=== PATIENT | female | born 1975 | race Caucasian/White ===

== ENCOUNTER → 2016-06-12 13:05 | Outpatient (CLI) | payer BC ==
[~2016-06-12 13:05] MED LIST: CELEBREX200 MG PO; CLIMARA 0.0.1 MG/PAT TRANSDERM; HYDROCHLOROTHIA25 MG PO; HYDROCODON-ACE1 EAC7 PO; LEVSIN/ANASP0.125 MG PO; MULTI-DAY VITAM1 TAB PO; NORCO 7.5/325 T1 TA1 PO; OMEPRAZOLE40 MG PO; PERCOCET 5-3251 TAB PO; VITAMIN D5000 UNIT PO; ZOFRAN ODT4 MG/UDTAB PO
[2016-06-12 13:40] LABS: BASOPHILS 0 % (0.0-2.0); EOSINOPHILS 0 % (0-7); HEMATOCRIT 41.6 % (36.0-48.0); HEMOGLOBIN 14.2 g/dL (12-16); IMMATURE GRANULOCYTES 0.4 % (0-5); LYMPHOCYTES 9.5 % (15-50); MCH 31.1 pg (26.0-34.0); MCHC 34.1 g/dL (31.0-37.0); MCV 91.2 fL (80.0-100.0); MEAN PLATELET VOLUME 8.8 fL (7.4-10.4); MONOCYTES 0.7 % (2-11); NEUTROPHILS 89.4 % (40-80); RBC 4.56 10x6/uL (4.00-5.40); RDW 12.4 % (11.5-14.5)
[2016-06-12 13:45] LABS: PLATELET COUNT 396 10x3/uL (130-400)
[2016-06-12 13:57] LABS: ALBUMIN 3.8 g/dL (3.4-5.0); ANION GAP 13.8 mmol/L (8-16); BILIRUBIN - DIRECT 0.15 mg/dL (0.00-0.30); BILIRUBIN - INDIRECT 0.55 mg/dL (0.00-1.00); BILIRUBIN - TOTAL 0.7 mg/dL (0.2-1.3); CALCIUM 9.7 mg/dL (8.5-10.1); CARBON DIOXIDE 25.6 mmol/L (21.0-32.0); CREATININE - SERUM 1.1 mg/dL (0.6-1.3); POTASSIUM - SERUM 4.4 mmol/L (3.5-5.1); PROTEIN - SERUM 8.5 g/dL (6.4-8.2)
== END | disposition home or self-care (01) ==
LOC: D.CT 13:05
PROVIDERS: Surgery
DX: R10.9 Unspecified abdominal pain (principal)

== ENCOUNTER 2016-09-08 20:14 | Emergency (ER) | payer BC | END 2016-09-08 22:12 | disposition home or self-care (01) | LOC: D.ER 20:14 | DX: L03.115 Cellulitis of right lower limb (principal); M79.671 Pain in right foot; K58.9 Irritable bowel syndrome, unspecified ==

== ENCOUNTER 2016-09-23 09:21 | Emergency (ER) | payer BC ==
[2016-09-23 10:05] LABS: BASOPHILS 0.1 % (0-2); EOSINOPHILS 0.4 % (0-7); HEMOGLOBIN 14.5 g/dL (12-16); IMMATURE GRANULOCYTES 0.3 % (0-5); LYMPHOCYTES 6.7 % (15-50); MCH 30.5 pg (26.0-34.0); MCV 92.4 fL (80.0-100.0); MEAN PLATELET VOLUME 8.6 fL (7.4-10.4); MONOCYTES 5.1 % (2-11); NEUTROPHILS 87.4 % (40-80); RBC 4.76 10x6/uL (4.00-5.40); RDW 13.6 % (11.5-14.5); WBC 19.5 10x3/uL (4.8-10.8)
[2016-09-23 10:06] LABS: PLATELET COUNT 271 10x3/uL (130-400)
[2016-09-23 10:18] LABS: ALBUMIN 3.9 g/dL (3.4-5.0); ANION GAP 12.8 mmol/L (8-16); BILIRUBIN - TOTAL 0.7 mg/dL (0.2-1.3); CALCIUM 9.5 mg/dL (8.5-10.1); CARBON DIOXIDE 27.9 mmol/L (21.0-32.0); POTASSIUM - SERUM 4.7 mmol/L (3.5-5.1)
[2016-09-23 10:52] LABS: APPEARANCE HAZY (CLEAR); COLOR STRAW (YELLOW); GLUCOSE NEGATIVE (NEGATIVE); KETONE NEGATIVE (NEGATIVE); LEUKOCYTE ESTERASE NEGATIVE (NEGATIVE); NITRITE NEGATIVE (NEGATIVE); PROTEIN NEGATIVE (NEGATIVE); SPECIFIC GRAVITY 1.005 (1.005-1.020)
[2016-09-23 10:53] LABS: BACTERIA FEW /hpf (NONE SEEN); BILIRUBIN NEGATIVE (NEGATIVE); EPITHELIAL CELLS 0-5 /hpf (0-5); UROBILINOGEN NORMAL (NORMAL); WHITE CELLS - URINE NSEEN /hpf (0-5)
== END 2016-09-23 14:45 | disposition home or self-care (01) ==
LOC: D.ER 09:21
PROVIDERS: Emergency Medicine; Physician Assistant Medical
DX: J18.9 Pneumonia, unspecified organism (principal); N93.8 Other specified abnormal uterine and vaginal bleeding; K58.9 Irritable bowel syndrome, unspecified

== ENCOUNTER 2016-09-30 16:47 | Inpatient (IN) | payer BC ==
[~2016-09-30] VITALS: Ht 177.8 cm; Wt 139.5 kg
--- NOTE | ~2016-09-30 | CN ---
PATIENT NAME:DENISA GROVE MEDICAL RECORD: [id number] : 77 LOCATION:[id number] ADMIT DATE: 09/30/16 ACCOUNT: [id number] CONSULTING PHYSICIAN: ADRIANNE PARKER MD REFERRING PHYSICIAN: TEGAN CULLEN MD DATE OF CONSULTATION: 10/01/2016 Rheumatology Consultation HISTORY OF PRESENT ILLNESS: Denisa Grove is a 41-year-old woman I have been asked to evaluate by Dr. Tegan Cullen regarding recurrent purpuric rash. The patient reports in February 2016 while doing a walking program, she developed red/purple petechial areas around the feet and lower legs, which have gradually worsened. She was evaluated by Dr. Casas upkeep worker in March 2016 and reports a skin biopsy in his office was obtained of this left lower leg and sent to [facility] and was interpreted as HS purpura. The patient reports she did not do any serologies. The patient reports she has had serologies through MACHINE DEBURRER's office, thinks her MARTÍN was negative. She is unaware of any other tests. In March, she was initially treated with prednisone 40 mg daily, was gradually tapered over 3 weeks. She had rapid response to the rash, but then it recurred when the prednisone was tapered. She was retreated again a second time. She was then off of all steroids for about mid April through early June when she underwent hysterectomy and removal of lap band. During that time, she had a prominent purpura of the lower legs and abdomen. She was then retreated with prednisone in June for 3 weeks and had temporary improvement of the rash. Because of recurrence of the rash, Plaquenil 200 mg once daily was added on 08/09/2016. During this time, she continued on some doses of prednisone. The patient reports that in July, she developed pain, swelling, erythema of the lower leg was diagnosed with cellulitis, treated in the Emergency Room with antibiotic. This was on or about September 08 with Bactrim that resolved. On September 23, she was admitted to the Emergency Room with feverishness dry cough. Chest x-ray showed old small left pleural effusion and thought she had pneumonia, treated with Levaquin 500 mg a day from September 23 to September 30. On arrival, the patient discontinued the Plaquenil, thinking this may have caused her infections. Yesterday, the patient was admitted from the office because of low-grade temperature of 99 degrees, fatigue, arthralgias, myalgias and recurrent purpura. On admission, white count was 22,000, which is decreased down to 12,000, hemoglobin 14.2, platelets normal, sed rate 20. C-reactive protein 3.6. Creatinine is 1 and BUN 12. Liver function is normal. CPK 313 (normal is less than 215). Most recent urinalysis on September 23 showed 2+ hemoglobin and 5-10 rbc's. When the patient was first diagnosed with HS purpura, she reports that since CONSULT REPORT [id number] DENISA GROVE then, she has had intermittent microhematuria. She reports attempts were made to get a nephrology consultation, but nothing can be established. Throughout all these episodes, the patient has had some mild arthralgias, myalgias and some puffiness of her hands and feet that increased during the day. She has not had a sign of pulmonary disease, definite photosensitive rash, alopecia, history of pleural effusion, pericarditis, hepatitis, TIA, or stroke. The patient reports her maternal uncle was diagnosed possibly 20 years ago with HS purpura and since then has developed lymphoma. The patient reports a maternal aunt being evaluated by another credit collection specialist for possible lupus like or Sjogren's-like symptoms. HOME MEDICATIONS: Levaquin 500 mg daily, completed on September 30, Plaquenil 200 mg daily, 08/09/2016-09/24/2016, previous courses of tapering dose prednisone, estradiol patch every 7 days (started in May 2016 after hysterectomy). CURRENT MEDICATIONS: Estradiol patch and acetaminophen 650 mg every 6 hours p.r.n. PAST MEDICAL HISTORY: SHE IS ALLERGIC TO RADIOCONTRAST DYE AND SHELLFISH. She had cholecystectomy, tonsillectomy, myringotomy tubes, hysterectomy and oophorectomy for benign reasons, lumbar disc surgery, right knee arthroscopy, gastric banding in 2013 and banding was removed in May 2016. She had a right carpal tunnel release in 2016. SOCIAL HISTORY: She does not smoke or drink alcohol. She works locally at the [employer]. FAMILY HISTORY: Positive family history of diabetes. Her mother in her 40s for adult respiratory distress syndrome, cause undetermined. She has had some sort of depleting or wasting disease prior to that. As outlined above, her maternal uncle was diagnosed with HS purpura approximately 20 years ago and subsequently developed lymphoma. Maternal aunt is being evaluated for Sjogren's and lupus-like symptoms. REVIEW OF SYSTEMS: See present illness. She denies chills, sweats, or rigor, dysphagia, frequent reflux, cough, wheeze, orthopnea, PND, epigastric discomfort, melena, hematochezia, DVT, TIA, stroke, or seizures. PHYSICAL EXAMINATION: VITAL SIGNS: Blood pressure [id number], pulse 85 and regular, respirations 20, temperature 97.7 and O2 sat 97% on room air. GENERAL: This is a well-developed, obese woman, in no acute distress. HEENT: Head: Normal female hair pattern without alopecia. Eyes: Conjunctivae are clear. Extraocular movements are normal. Throat is clear. Mouth is moist without lesions. Parotid and submandibular glands are not enlarged. NECK: Supple, trachea is midline. There is no adenopathy in the neck or supraclavicular areas or axilla. LUNGS: Clear. CARDIOVASCULAR: S1 and S2 are normal. Carotid arteries are 2+ without delay or bruit. Pedal pulses 2+. No dependent edema. CONSULT REPORT [id number] DENISA GROVE ABDOMEN: Soft, obese, nontender, without masses. MUSCULOSKELETAL: There is no inflammation in wrist, fingers, elbows and knees. NEUROLOGIC: Alert and oriented. Moves all extremities well. Muscle strength is 5/5 in the upper and lower extremities proximally and distally. SKIN: She has a flat purpura with dusky red macules around the feet, ankles, some on the shins, thighs. There is no involvement at this time of the abdomen and arms. There is no malar rash, discoid lupus, sclerodactyly, telangiectasia, or nodules. PSYCHIATRIC: Normal affect, alert and oriented. IMPRESSION: 1. Recurrent purpuric rash with prominent involvement of the lower extremities, previous diagnosed as HS purpura by skin biopsy in March 2016, still unresponsive. 2. Microhematuria possibly secondary to HS purpura. 3. Episodes of cellulitis of the foot and ankle early in August 2016, treated successfully with Bactrim. 4. Left pleural effusion/cough diagnosed as pneumonitis on 09/23/2016, treated successfully with Levaquin. 5. Current illness with myalgias, arthralgias, fatigue, low-grade temperature, leukocytosis and recurrent purpuric rash. RECOMMENDATIONS: 1. Advise obtaining all previous serological tests if not performed or reconsider rechecking the following tests, MARTÍN, ANCA, rheumatoid factor, serum protein electrophoresis and cryoglobulins. 2. Consider treatment with low-dose prednisone such as 10 mg daily, observe response to myalgias or arthralgias, low-grade temperature and rash. 3. Could conceivably restart low-dose, Plaquenil, but might consider increasing dose based on weight to maximum of 5 mg/kg. 4. Continue supportive care. 5. Try to obtain a copy of previous skin biopsy for review. TRANSINT:[id number] Voice Confirmation ID: [id number] DOCUMENT ID: [id number] ADRIANNE PARKER MD CC: [id number] DICTATION DATE: 10/01/161847 ASSISTANT PROFESSOR OF DIETETICS: 10/02/16 0408 ADM IN [facility] [address] [id number]
--- NOTE | 2016-09-30 17:10 | NUR ---
RECEIVED TO ROOM 2[address] AT THIS TIME FROM DR CULLEN'S OFFICE. IV TO RIGHT UPPER ARM X4 ATTEMPTS. ASSESSMENT AND HISTORY OBTAINED PER FLOWSHEET. PT IS AMBULATORY AND SELF POSITIONS FOR COMFORT. WILL CONTINUE WITH PLAN OF CARE.
[2016-09-30 17:21] VITALS: BP 138/74
[2016-09-30 17:30] VITALS: BP 138/74; Ht 177.8 cm; Wt 139.5 kg
[2016-09-30 18:05] LABS: HEMOGLOBIN 14.2 g/dL (12-16); MCH 30.7 pg (26.0-34.0); MCHC 33.8 g/dL (31.0-37.0); MCV 90.9 fL (80.0-100.0); MEAN PLATELET VOLUME 8.7 fL (7.4-10.4); PLATELET COUNT 258 10x3/uL (130-400); RBC 4.62 10x6/uL (4.00-5.40); RDW 13.8 % (11.5-14.5)
[2016-09-30 18:42] LABS: EOSINOPHILS 2 % (0-7); LYMPHOCYTES 11 % (15-50); MONOCYTES 3 % (2-11); NEUTROPHILS 84 % (40-80); PLATELET ESTIMATE NORMAL
[2016-09-30 18:46] LABS: ALBUMIN 3.6 g/dL (3.4-5.0); ALKALINE PHOSPHATASE 59 U/L (46-116); ALT (SGPT) 27 U/L (10-68); BILIRUBIN - TOTAL 1.04 mg/dL (0.2-1.3); CALC OSMOLALITY 280 mosm/kg (275-300); CALCIUM 9.2 mg/dL (8.5-10.1); CARBON DIOXIDE 27.7 mmol/L (21.0-32.0); CHLORIDE - SERUM 103 mmol/L (98-107); CREATININE - SERUM 1.1 mg/dL (0.6-1.3); GLUCOSE 94 mg/dL (74-106); POTASSIUM - SERUM 4.1 mmol/L (3.5-5.1); PROTEIN - SERUM 7.1 g/dL (6.4-8.2); SODIUM 141 mmol/L (136-145); UREA NITROGEN 13 mg/dL (7-18); eGFR NON AFRICAN AMERICAN 58 mL/min (90-120)
[2016-09-30 19:08] LABS: C-REACTIVE PROTEIN 3.4 mg/dL (0.0-0.9); CREATINE KINASE 313 UL (21-215)
[2016-09-30 19:13] LABS: ERYTHROCYTE SEDIMENTATION RATE 20 mm/hr (0-20)
[2016-09-30 19:14] LABS: CKMB 1.7 U/L (0.0-3.6)
[2016-09-30 20:00] VITALS: BP 129/83
[2016-10-01 04:00] VITALS: BP 115/47
[2016-10-01 06:19] LABS: BASOPHILS 0.3 % (0-2); HEMATOCRIT 41.6 % (36.0-48.0); HEMOGLOBIN 13.5 g/dL (12-16); IMMATURE GRANULOCYTES 0.7 % (0-5); LYMPHOCYTES 18.5 % (15-50); MCHC 32.5 g/dL (31.0-37.0); MCV 92.4 fL (80.0-100.0); MEAN PLATELET VOLUME 8.8 fL (7.4-10.4); MONOCYTES 8.3 % (2-11); NEUTROPHILS 70.2 % (40-80); PLATELET COUNT 263 10x3/uL (130-400); RDW 13.8 % (11.5-14.5)
[2016-10-01 06:41] LABS: ANION GAP 12.3 mmol/L (8-16); CALCIUM 8.5 mg/dL (8.5-10.1); CARBON DIOXIDE 26.5 mmol/L (21.0-32.0); POTASSIUM - SERUM 3.8 mmol/L (3.5-5.1)
--- NOTE | 2016-10-01 07:49 | NUR ---
PRN TYLENOL 650 MG ADMINISTERED FOR PAIN 4/10. PAIN IS DESCRIBED GENERALIZED. ASSESSMENT PERFORMED PER FLOWST. DR CULLEN AT BEDSIDE. CALL LIGHT IN REACH, WILL CONTINUE WITH PLAN OF CARE.
[2016-10-01 08:17] VITALS: BP 133/63
--- NOTE | 2016-10-01 10:00 | NUR ---
DENIES NEEDS AT THIS TIME. IV SITE COVERED, SO THAT PT COULD SHOWER AT THIS TIME.
[2016-10-01 12:08] VITALS: BP 136/83
--- NOTE | 2016-10-01 14:01 | NUR ---
IV TO RIGHT UPPER ARM FLUSHED AT THIS TIME. PT DENIES NEEDS. CALL LIGHT IN REACH, WILL CONTINUE WITH PLAN OF CARE.
--- NOTE | 2016-10-01 15:35 | NUR ---
Patient Name: ALPHONSO MEDINA Admission Status: Urgent Accout number: [id number] Admission Date: 09-30-2016 : 1975 Admission Diagnosis:ALLERGIC PURPURA Attending: GIOVANA Current LOS: 1 Anticipated DC Date: 10-04-2016 Planned Disposition: Home [facility] Discharge Planning Comments: CM MET WITH PATIENT REGARDING D/C NEEDS AND PLANS. PATIENT STATED SHE LIVES WITH HER SPOUSE (LOWELL PAN) AND SHE WILL DRIVE HER HOME AT DISCHARGE. PATIENT IS INDEPENDENT WITH HER CARE AND HAS A WHEELCHAIR IF NEEDED. PATIENTS PCP IS DR. CULLEN (INDIRA RUIZ). PATIENTS PHARMACY IS [facility] ON [address]. PATIENT HAS NOT HAD HOMEHEALTH AND DOES NOT WANT IT AT DISCHARGE. CM WILL CONTINUE TO FOLLOW PATIENT WITH D/C NEEDS AND PLANS. PCP DR. CULLEN [facility] ON [address] [phone] LOWELL PAN (SPOUSE) Genetic Engineer: Gudelia Christine Is the patient Alert and Oriented? Yes 0 * How many steps to enter\exit or inside your home? 0 0 * PCP DR. CULLEN 0 * [facility] [place] [facility] [address] * Preadmission Environment Home with Family 0 * ADLs Independent 0 * Equipment Wheelchair 0 * List name and contact numbers for known caregivers / representatives who currently or will assist patient after discharge: LOWELL PAN [phone] * Community resources currently utilized None 0 * Additional services required to return to the preadmission environment? Yes 0 * Can the patient safely return to the preadmission environment? Yes 0 * Has this patient been hospitalized within the prior 30 days at any hospital? No 0 Grand Total: 0
[2016-10-01 16:28] VITALS: BP 112/70
[2016-10-01 19:00] VITALS: BP 117/70
[2016-10-02 04:00] VITALS: BP 112/60
[2016-10-02 06:10] LABS: BASOPHILS 0.4 % (0-2); EOSINOPHILS 4.4 % (0-7); HEMATOCRIT 41.4 % (36.0-48.0); HEMOGLOBIN 13.4 g/dL (12-16); IMMATURE GRANULOCYTES 1.1 % (0-5); LYMPHOCYTES 30.1 % (15-50); MCHC 32.4 g/dL (31.0-37.0); MCV 92.6 fL (80.0-100.0); MONOCYTES 9.4 % (2-11); NEUTROPHILS 54.6 % (40-80); PLATELET COUNT 258 10x3/uL (130-400); RBC 4.47 10x6/uL (4.00-5.40); RDW 13.7 % (11.5-14.5)
[2016-10-02 06:30] LABS: WBC 7.3 10x3/uL (4.8-10.8)
[2016-10-02 06:43] LABS: ALBUMIN 3.2 g/dL (3.4-5.0); ANION GAP 11.4 mmol/L (8-16); BILIRUBIN - TOTAL 0.32 mg/dL (0.2-1.3); CALCIUM 8.5 mg/dL (8.5-10.1); CARBON DIOXIDE 26.6 mmol/L (21.0-32.0); CREATININE - SERUM 0.9 mg/dL (0.6-1.3); PROTEIN - SERUM 6.9 g/dL (6.4-8.2)
--- NOTE | 2016-10-02 07:34 | NUR ---
DR GUDINO IN ROOM WITH PT AT THIS TIME. PT VOICES NO NEEDS TO MYSELF. CALL LIGHT IN REACH, WILL CONTINUE WITH PLAN OF CARE.
[2016-10-02] MEDS ORDERED: PREDNISONE10 MG PO (08:00)
[2016-10-02 08:04] VITALS: BP 134/77
--- NOTE | 2016-10-02 08:50 | NUR ---
ESTROGEN PATCH CHANGED AT THIS TIME. PT REPORTS THAT SHE WILL NOT HAVE A RIDE FOR DISCHARGE UNTIL 5PM. EXPLAINED TO PT THAT WOULD BE FINE.
--- NOTE | 2016-10-02 09:02 | NUR ---
CM REASSESSMENT NOTE: PATIENTS (LOWELL) IS DRIVING PATIENT HOME AT DISCHARGE TODAY. PATIENT EXPRESSES NO NEEDS FOR DISCHARGE/REF. HOME HEALTH.
--- NOTE | 2016-10-02 09:52 | NUR ---
FIRST DOSE OF PREDNISONE ADMINISTERED AT THIS TIME. PROVIDED PT WITH FRESH ICE WATER. DENIES NEEDS AT THIS TIME. CALL LIGHT IN REACH, WILL CONTINUE WITH PLAN OF CARE.
--- NOTE | 2016-10-02 11:20 | NUR ---
PRN TYLENOL ADMINISTERED AT THIS TIME FOR PAIN 5/10. CALL LIGHT IN REACH, DENIES FURTHER NEEDS. WILL CONTINUE WITH PLAN OF CARE.
[2016-10-02 12:01] VITALS: BP 126/87
[2016-10-02 15:35] VITALS: BP 132/73
--- NOTE | 2016-10-02 16:35 | NUR ---
IV TO RIGHT UPPER ARM D/C WITH CATH TIP INTACT. DISCHARGE PAPERWORK REVIEWED WITH PT AND DENIES QUESTIONS OR CONCERNS.
[2016-10-03 10:18] LABS: HEP B CORE AB TOTAL Negative (Negative); HEPATITIS C ANTIBODY <0.1 (0.0-0.9)
== END 2016-10-02 17:35 | disposition home or self-care (01) | DRG 813 ==
LOC: D.MS 16:47
PROVIDERS: ADMIT Family Medicine
DX: D69.0 Allergic purpura (principal); M79.1 Myalgia; D72.829 Elevated white blood cell count, unspecified

== ENCOUNTER → 2016-11-07 10:04 | Outpatient (CLI) | payer BC ==
[2016-09-30 17:30] VITALS: BMI 44.1
[~2016-11-07 10:04] MED LIST changes: +PREDNISONE10 MG PO
== END | disposition home or self-care (01) ==
LOC: D.RAD 10:04
DX: M25.551 Pain in right hip (principal)

== ENCOUNTER 2016-11-15 08:32 | Outpatient (CLI) | payer BC ==
[2016-09-30 17:30] VITALS: BMI 44.1
== END 2016-11-15 13:20 ==
LOC: D.MAMMO 08:32
DX: Z12.31 Encounter for screening mammogram for malignant neoplasm of breast (principal)

== ENCOUNTER 2016-11-17 15:27 | Emergency (ER) | payer BC ==
[2016-09-30 17:30] VITALS: BMI 44.1
== END 2016-11-17 18:04 | disposition home or self-care (01) ==
LOC: D.ER 15:27
DX: S39.012A Strain of muscle, fascia and tendon of lower back, initial encounter (principal); X58.XXXA Exposure to other specified factors, initial encounter; M54.41 Lumbago with sciatica, right side

== ENCOUNTER 2016-12-18 16:37 | Outpatient (CLI) | payer BC ==
[2016-09-30 17:30] VITALS: BMI 44.1
== END 2016-12-18 17:06 | disposition home or self-care (01) ==
LOC: D.MAMMO 16:37
DX: R92.8 Other abnormal and inconclusive findings on diagnostic imaging of breast (principal)

== ENCOUNTER → 2017-09-22 15:26 | Outpatient (CLI) | payer BC ==
[2016-09-30 17:30] VITALS: BMI 44.1
== END | disposition home or self-care (01) ==
LOC: D.MRI 09-18 16:00
DX: M25.562 Pain in left knee (principal)

== ENCOUNTER → 2017-11-05 16:14 | Outpatient (CLI) | payer BC ==
[2016-09-30 17:30] VITALS: BMI 44.1
== END | disposition home or self-care (01) ==
LOC: D.MAMMO 14:00
DX: Z12.31 Encounter for screening mammogram for malignant neoplasm of breast (principal)

== ENCOUNTER → 2018-01-15 19:14 | Outpatient (CLI) | payer BC ==
[2016-09-30 17:30] VITALS: BMI 44.1
== END | disposition home or self-care (01) ==
LOC: D.LABREF 19:14
DX: M25.561 Pain in right knee (principal)

== ENCOUNTER → 2018-01-29 14:55 | Outpatient (CLI) | payer BC ==
[2016-09-30 17:30] VITALS: BMI 44.1
== END | disposition home or self-care (01) ==
LOC: D.MRI 14:55
DX: M25.561 Pain in right knee (principal)

== ENCOUNTER 2018-12-04 09:00 | Outpatient (CLI) | payer BC ==
[2016-09-30 17:30] VITALS: BMI 44.1
== END 2018-12-04 10:00 | disposition home or self-care (01) ==
LOC: D.MAMMO 09:00
PROVIDERS: ATTEND Family Medicine
DX: Z12.31 Encounter for screening mammogram for malignant neoplasm of breast (principal)

== ENCOUNTER 2019-03-08 11:44 | Day surgery (SDC) | payer BC ==
[~2019-03-08] VITALS: Ht 177.8 cm; Wt 156.8 kg
[2019-03-08 12:08] LABS: BASOPHILS 0.2 % (0-2); EOSINOPHILS 0.5 % (0-7); HEMATOCRIT 44.4 % (36.0-48.0); HEMOGLOBIN 14.8 g/dL (12-16); IMMATURE GRANULOCYTES 0.3 % (0-5); LYMPHOCYTES 14.4 % (15-50); MCH 32.6 pg (26.0-34.0); MCHC 33.3 g/dL (31.0-37.0); MCV 97.8 fL (80.0-100.0); MEAN PLATELET VOLUME 8.6 fL (7.4-10.4); MONOCYTES 3.7 % (2-11); NEUTROPHILS 80.9 % (40-80); PLATELET COUNT 293 10x3/uL (130-400); RBC 4.54 10x6/uL (4.00-5.40); RDW 13.8 % (11.5-14.5); WBC 11.2 10x3/uL (4.8-10.8)
[2019-03-08 12:27] LABS: ANION GAP 11.3 mmol/L (8-16); CALCIUM 8.9 mg/dL (8.5-10.1); CARBON DIOXIDE 29.2 mmol/L (21.0-32.0); POTASSIUM - SERUM 4.5 mmol/L (3.5-5.1)
[2019-03-08] MEDS ORDERED: PREDNISONE10 MG PO (12:32)
[2019-03-08] MEDS ORDERED: TREXALL10 MG PO (12:33)
[2019-03-08] MEDS ORDERED: FOLIC ACID1 MG PO (12:33)
[2019-03-08] MEDS ORDERED: FUROSEMIDE20 MG (12:34)
[2019-03-08] MEDS ORDERED: NORVASC2.5 MG PO (12:34)
[2019-03-08] MEDS ORDERED: VITAMIN D5000 UNIT PO (12:35)
[2019-03-08] MEDS ORDERED: MAGNESIUM OXID250 MG PO (12:35)
[2019-03-08] MEDS ORDERED: SUPER B COMPLEX (12:36)
[2019-03-08 12:47] VITALS: Ht 177.8 cm; Wt 156.8 kg
--- NOTE | 2019-03-08 14:54 | NUR ---
1430 IV DC'D. CATHETER TIP INTACT. NO BLEEDING AT SITE. BANDAID APPLIED
--- NOTE | 2019-03-10 19:08 | OP ---
PATIENT NAME: ALPHONSO MEDINA MEDICAL RECORD: [id number] :[birth year] LOCATION:[facility] ADMISSION DATE: SURGEON: JAVAD HARRISON DO DATE OF OPERATION: 03/08/2019 PROCEDURE: EGD with biopsies. INDICATION FOR PROCEDURE: Epigastric abdominal pain. SCOPE: Olympus video gastroscope. MEDICATIONS: Propofol 400 mg IV per anesthesia. ESTIMATED BLOOD LOSS: Minimal. COMPLICATIONS: None. FINDINGS: Informed consent was given. The patient was made comfortable with the above medication. After reaching an adequate level of sedation by slow IV push, the patient was placed on her left side. The endoscope was advanced under direct visualization through the mouth to the second portion of the duodenum. The upper, middle, and lower thirds of the esophagus appeared normal. A single cold forceps biopsy was randomly taken from the midesophagus to submit for histopathology and to rule out the presence of eosinophils. At the GE junction, there was evidence of LA class B reflux-induced esophagitis and a few superficial esophageal ulcers without bleeding. The endoscope was advanced beyond the GE junction into the stomach and retroflexed to view the cardia, which revealed a patulous GE junction. Throughout the entire stomach, there were patchy areas of erythema and granularity consistent with mild gastritis. Random cold forceps biopsies were taken from the antrum and stomach body to submit for histopathology and to rule out the presence of H. pylori. The endoscope was advanced beyond the pylorus into the duodenum, which appeared normal to the second portion. The endoscope was withdrawn from the patient. The patient tolerated the procedure well and there were no complications. IMPRESSION: 1. LA class B reflux-induced esophagitis. 2. Patulous gastroesophageal junction. 3. Esophageal ulcer. 4. Gastritis. PLAN AND RECOMMENDATIONS: 1. Discharge home when recovery parameters are met. 2. Follow up biopsy specimen results. 3. GERD diet and reflux precautions. 4. Continue current medications. 5. Omeprazole 40 mg daily to be taken while the patient is requiring prednisone. After discontinuation of prednisone, antacid therapy could be switched to Pepcid or an equivalent histamine charlee versus reduction in dose PPI to 20 mEq versus discontinuation of medication. 6. Follow up in GI clinic after colonoscopy is completed to discuss symptoms if ongoing. TRANSINT:[id number] Voice Confirmation ID: [id number] DOCUMENT ID: [id number] OPERATIVE REPORT [id number] ALPHONSO MEDINA NATHAN A DO at 1908 CC: [id number] DICTATION DATE: 03/08/19 1404 FERN CUTTER: 03/08/19 2234 [facility] 03/08/[id number] [place] [address]
== END 2019-03-08 14:40 | disposition home or self-care (01) ==
LOC: D.OPS 11:44
PROVIDERS: Anesthesiology; ATTEND Internal Medicine Gastroenterology
DX: R10.13 Epigastric pain (principal); K21.9 Gastro-esophageal reflux disease without esophagitis; K22.10 Ulcer of esophagus without bleeding; K29.70 Gastritis, unspecified, without bleeding

== ENCOUNTER → 2019-03-23 11:34 | Outpatient (CLI) | payer BC ==
[2019-03-08 12:47] VITALS: BMI 49.6
[~2019-03-23 11:34] MED LIST changes: +FOLIC ACID1 MG PO; +FUROSEMIDE20 MG; +MAGNESIUM OXID250 MG PO; +NORVASC2.5 MG PO; +SUPER B COMPLEX; +TREXALL10 MG PO; +ZYRTEC10 MG PO
== END | disposition home or self-care (01) ==
LOC: D.HCCARDIO 11:34
PROVIDERS: ATTEND Internal Medicine Cardiovascular Disease
DX: R00.2 Palpitations (principal)

== ENCOUNTER 2019-04-07 11:00 | Outpatient (CLI) | payer BC ==
[~2019-04-07] VITALS: Ht 177.8 cm; Wt 160.9 kg
--- NOTE | ~2019-04-07 | HEMODYNAMI ---
PATIENT:ALPHONSO MEDINA MEDICAL RECORD: [id number] : 77 LOCATION:[facility] ADMISSION DATE: 04/07/19 Generatedon:04/07/201914:13 Patient name: ALPHONSO MEDINA Patient #: [id number] SSN: [id number] : 1975 Date of study: 04/07/2019 Page: Of Hemodynamic Procedure Report Patient Data Patient Demographics Procedure consent was obtained First Name: ALPHONSO Gender: Female Last Name: ADAM : 1975 [facility] Initial: JOSETTE Age: 43 year(s) Patient #: [id number] Race: SSN: [id number] Additional ID: [id number] Contact details Address: [address] [place] [address] State: [place] City: [place] Zip code: [address] Admission Admission Data Admission Date: 04/07/2019 Admission Time: 11:00 Arrival Date: 04/07/2019 Arrival Time: 13:00 Admit Source: Other Insurance Payor: Private health insurance [facility] #: [id number] Height (in.): 70.08 BSA: 2.67 (m2) Height (cm.): 178 BMI: 50.81 (kg/m2) Weight (lbs.): 354.95 Weight (kg.): 161 Procedure Procedure Types Cath Procedure Diagnostic Procedure C [facility] w/Coronaries Sedation Charges Moderate Sedation up to 30 minutes Procedure Description Procedure Date Procedure Date: 04/07/2019 Procedure Start Time: 13:45 Procedure End Time: 14:11 Procedure Staff Name Function Beau Limon MD Performing Physician Raysa Teague RT Monitor Joyce Ash RT Scrub Mariano Alvarez RN Nurse Procedure Data Cath Procedure Fluoroscopy Diagnostic fluoroscopy Total fluoroscopy Time: 8.1 time: 8.1 min min Diagnostic fluoroscopy Total fluoroscopy dose: dose: 1779 mGy 1779 mGy Contrast Material Contrast Material Type Amount (ml) Isovue 300 93 Entry Location Entry Primary Successful Side Size Upsize Upsize Entry Closure Mann ccessful Closure Location (Fr) 1 (Fr) 2 (Fr) Remarks Device Remarks Radial Right 5 Fr Mechanical artery Compression Femoral Right 5 Fr Exoseal artery Estimated blood loss: 5 ml Diagnostic catheters Device Type Used For End Catheter Placement DIAGNOSTIC [place] 110cm 5 Multi-vessel Fr catheter ([id number]) Angiography DIAGNOSTIC Omer 110cm Multi-vessel 5Fr catheter ([id number]) Angiography DIAGNOSTIC JL 4.0 5Fr Left Coronary catheter ([id number]) Angiography Procedure Complications No complications Procedure Medications Medication Administration Route Dosage 0.9% NaCl I.V. 100 ml/hr Oxygen etCO2 Nasal cannula 2 l/min Heparin Flush Bag added to field 2 bags (1000units/500ml NS) Lidocaine 2% added to field 20 Radial Cocktail added to field 1 syringe (Verapamil 2mg/Nitro 400mcg/Heparin 1500units) Versed I.V. 2 mg Fentanyl I.V. 100 mcg Versed I.V. 2 mg Fentanyl I.V. 100 mcg Radial Cocktail I.A. 1 syringe (Verapamil 2mg/Nitro 400mcg/Heparin 1500units) Versed I.V. 2 mg Versed I.V. 2 mg Hemodynamics Rest BSA: 2.67 (m2) O2 Consumption: Estimated: 283.99 (ml/min) O2 Consumption indexed : Estimated:106.36 (ml/min/m) Heart Rate: 85 (bpm) Pressure Samples Time Site Value (mmHg) Purpose Heart Use Rate(bpm) 13:48 LV 140/-5,16 Snapshot 92 Snapshots Pre Cath Intra NCS Post Cath Vital Signs Time Heart Resp SPO2 etCO2 NIBP (mmHg) Rhythm Pain Sedation Rate (ipm) (%) (mmHg) Status Level (bpm) 13:28:34 86 18 99 0 146/98(119) NSR 0 (11) 10(A) , No pain 13:33:15 90 16 98 0 160/95(123) NSR 0 (11) 10(A) , No pain 13:37:33 88 13 98 37.7 157/88(115) NSR 0 (11) 10(A) , No pain 13:41:45 82 15 95 36.2 163/93(113) NSR 0 (11) 10(A) , No pain 13:45:59 87 16 95 43 168/86(119) NSR 0 (11) 10(A) , No pain 13:50:07 90 20 91 40.8 140/80(111) NSR 0 (11) 10(A) , No pain 13:55:08 94 20 94 17.3 146/83(115) NSR 0 (11) 10(A) , No pain 13:59:18 96 20 94 40 157/84(105) NSR 0 (11) 10(A) , No pain 14:03:34 86 19 94 25.6 159/87(109) NSR 0 (11) 10(A) , No pain 14:07:50 88 21 94 39.2 159/80(109) NSR 0 (11) 10(A) , No pain Medications Time Medication Route Dose Verified Delivered Reason Notes Effectiveness by by 13:35:46 0.9% NaCl I.V. 100 Mariano Mariano Per ml/hr Kim Alvarez physician RN RN 13:35:56 Oxygen etCO2 2 l/min Mariano Mariano for low 02 Nasal Lorigan Lorwoody sats cannula RN RN 13:36:06 Heparin Flush added 2 bags Mariano Mariano used for Bag to Lorigan Kim procedure (1000units/500ml field FINN RN NS) 13:36:16 Lidocaine 2% added 20ml Mariano Amriano for local to vial Lorigan Lorigan anesthetic field FINN RN 13:36:28 Radial Cocktail added 1 Mariano Mariano used for (Verapamil to syringe Lorigan Kim procedure 2mg/Nitro field FINN RN 400mcg/Heparin 1500units) 13:45:11 Versed I.V. 2 mg Mariano Mariano for sedation Kim Alvarez RN RN 13:45:20 Fentanyl I.V. 100 mcg Mariano Mariano for sedation Kim Alvarez RN RN 13:47:32 Versed I.V. 2 mg Mariano Mariano for sedation Kim Alvarez RN RN 13:47:37 Fentanyl I.V. 100 mcg Mariano Mariano for sedation Kim Alvarez RN RN 13:47:51 Radial Cocktail I.A. 1 Mariano Beau for (Verapamil syringe Kim gastelum 2mg/Nitro RN 400mcg/Heparin 1500units) 13:49:09 Versed I.V. 2 mg Mariano Mariano for sedation Kim Alvarez RN RN 14:01:52 Versed I.V. 2 mg Mariano Quintana for sedation Kim Alvarez RN guest services officer Log Time Note 13:15:26 Joyce Ash RT(R) sent for patient. Start room use. 13:16:52 Informed consent obtained and on chart 13:18:16 Admit Source: Other 13:18:18 Arrival Date: 04/07/2019 1:00:00 PM 13:18:36 Insurance Payor : Private health insurance 13:20:55 Patient Weight : 354.95 lbs 13:20:59 Patient Height : 70.08 inches 13:23:31 Time tracking: Regular hours (M-F 7:00 - 5:00) 13:23:35 Plan of Care:Hemodynamics will remain stable., Cardiac rhythm will remain stable., Comfort level will be maintained., Respiratory function will remain adequate., Patient/ family verbilizes understanding of procedure., Procedure tolerated without complication., Recovers from procedure without complications.. 13:23:40 Patient received from Pre/Post Procedure Room to CCL 2 Alert and oriented. Tansferred to table in Supine position. 13:23:41 Warm blankets applied, and sury hugger turned on for patient comfort. 13:23:41 Correct patient and procedure confirmed by team. 13:23:42 ECG and BP/O2 sat monitors applied to patient. 13:27:28 Vital chart was started 13:35:46 0.9% NaCl 100 ml/hr I.V. was administered by Mariano Alvarez RN; Per physician; Verbal order read back and verified. 13:35:56 Oxygen 2 l/min etCO2 Nasal cannula was administered by Mariano Alvarez RN; for low 02 sats; Verbal order read back and verified. 13:36:06 Heparin Flush Bag (1000units/500ml NS) 2 bags added to field was administered by Mariano Alvarez RN; used for procedure; Verbal order read back and verified. 13:36:16 Lidocaine 2% 20ml vial added to field was administered by Mariano Alvarez RN; for local anesthetic; Verbal order read back and verified. 13:36:28 Radial Cocktail (Verapamil 2mg/Nitro 400mcg/Heparin 1500units) 1 syringe added to field was administered by Mariano Alvarez RN; used for procedure; Verbal order read back and verified. 13:38:01 Baseline sample Acquired. 13:38:04 Rhythm: sinus rhythm 13:39:23 Full Disclosure recording started 13:39:28 H&P Date Dictated: 04/07/2019 Within 30 days and on chart., H&P Addendum completed by physician on day of procedure. (MUST COMPLETE FOR ALL OUTPATIENTS). 13:39:29 Pre-procedure instructions explained to patient. 13:39:30 Pre-op teaching completed and patient verbalized understanding. 13:39:31 Family in waiting room. 13:39:33 Patient NPO since Midnight. 13:39:43 Is the patient allergic to Iodine/contrast media? No. 13:39:46 Was the patient premedicated? Yes 13:40:07 Is patient on blood thinner?No 13:40:08 Patient diabetic? No. 13:40:11 Previous problem with sedation/anesthesia? No ? 13:40:14 Snore? Yes 13:40:15 Sleep apnea? Yes 13:40:16 Deviated septum? No 13:40:16 Opens mouth fully? Yes 13:40:17 Sticks out tongue? Yes 13:40:20 Airway obstruction? No ? 13:40:22 Dentures? No ? 13:40:28 Pre procedure: right dorsailis pedis pulse 2+ Normal; easily identifiable; not easily obliterated 13:40:30 Pre procedure: left dorsailis pedis pulse 2+ Normal; easily identifiable; not easily obliterated 13:40:33 Patient pain scale 0/10 ?. 13:40:38 IV patent on arrival in right forearm with 0.9% NaCl at O. 13:40:43 Lab results completed and on chart. 13:40:49 Stress Test: yes; abnormal 73 13:40:54 Risk of Mortality: 0.1 13:40:58 Risk of blood transfusion: 0.3 13:41:02 Risk of ANTONIETA: 0.3 13:41:07 Right Radial & Right Groin area was prepped with chlora-prep and draped in sterile fashion 13:41:08 Alarms reviewed by R. N. 13:41:09 Sharps counted by scrub and verified by R.N. 13:41:10 Physician arrived 13:41:10 --------ALL STOP TIME OUT------ 13:41:11 Final Timeout: patient, procedure, and site verified with staff and physician. All members of the team are in agreement. 13:41:13 Right Radial & Right Groin site verified by team. 13:41:17 Fire Safety Assessment: A--An alcohol-based skin anteseptic being used preoperatively., C--Open oxygen or nitrous oxide is being used., D--An ESU, laser, or fiber-optic light is being used. 13:41:20 Physical assessment completed. ASA score P 2 - A patient with mild systemic disease as per Beau Limon MD. 13:41:31 2) 60-89 Mildly reduced kidney function, and other findings (as for stage 1) point to kidney disease. 13:41:46 Maximum allowable contrast dose (3.7 X eGFR X 0.75)202 ml. 13:41:50 Sedation plan: IV Moderate Sedation Medication:Versed, Fentanyl 13:41:54 Use device set Radial Dx or PCI 13:41:55 ACIST Syringe (86130) opened to sterile field. 13:41:55 Medline Cath Pack ([id number]) opened to sterile field. 13:41:56 Bag Decanter (2002S) opened to sterile field. 13:41:56 ACIST Hand Control (48473) opened to sterile field. 13:41:56 ACIST Manifold (78267) opened to sterile field. 13:42:00 MBrace Wrist Support ([id number]) opened to sterile field. 13:42:01 NEEDLE Cook 21G 4cm Radial (S17112) opened to sterile field. 13:42:04 SHEATH 6FR RAIN (0471986) opened to sterile field. 13:42:05 EMERALD Guide Wire (571-913) opened to sterile field. 13:45:11 Versed 2 mg I.V. was administered by Mariano Alvarez RN; for sedation; Verbal order read back and verified. 13:45:20 Fentanyl 100 mcg I.V. was administered by Mariano Alvarez RN; for sedation; Verbal order read back and verified. 13:45:26 Procedure started. 13:45:30 Local anesthetic to right radial artery with Lidocaine 2% by Beau Limon MD.INITIAL ACCESS ONLY 13:45:50 A 5 Fr sheath was inserted into the Right Radial artery 13:47:32 Versed 2 mg I.V. was administered by Mariano Alvarez RN; for sedation; Verbal order read back and verified. 13:47:37 Fentanyl 100 mcg I.V. was administered by Mariano Alvarez RN; for sedation; Verbal order read back and verified. 13:47:51 Radial Cocktail (Verapamil 2mg/Nitro 400mcg/Heparin 1500units) 1 syringe I.A. was administered by Beau Limon MD; for vasodilation; Verbal order read back and verified. 13:49:09 Versed 2 mg I.V. was administered by Mariano Alvarez RN; for sedation; Verbal order read back and verified. 13:49:10 A DIAGNOSTIC [place] 110cm 5 Fr catheter (297453) was advanced over the wire and used for Multi-vessel Angiography. 13:49:17 LV hemodynamics recorded. 13:49:18 LV gram done using ALMANZAR 13:49:20 Injector settings: Ml/sec: 5, Volume: 15, 13:49:25 EF : 55 % 13:51:29 Catheter removed. 13:52:29 RCA angiography performed. 13:52:55 Injector settings: Ml/sec: 3, Volume: 6, 13:56:01 A DIAGNOSTIC Omer 110cm 5Fr catheter (142584) was advanced over the wire and used for Multi-vessel Angiography. 13:57:29 Catheter removed. unable to cannulate vessel. 13:58:40 GUIDE 5FR EBU 3.5 catheter ([id number]) opened to sterile field. 13:58:53 5 Fr ebu 3.5 guide catheter was inserted over the wire 14:01:34 Catheter removed. unable to cannulate vessel. 14:01:52 Versed 2 mg I.V. was administered by Mariano Alvarez RN; for sedation; Verbal order read back and verified. 14:02:17 Dr Limon preparing for femoral access; unable to cannulate LCA through radial access 14:02:25 SHEATH 5FR Cooper (OJW763) opened to sterile field. 14:03:11 Local anesthetic to right femoral artery with Lidocaine 2% by Beau Limon MD.ADDITIONAL ACCESS 14:03:21 A 5 Fr sheath was inserted into the Right Femoral artery 14:06:09 A DIAGNOSTIC JL 4.0 5Fr catheter ([id number]) was advanced over the wire and used for Left Coronary Angiography. 14:08:26 LCA angiography performed. 14:08:28 Injector settings: Ml/sec: 3, Volume: 6, 14:08:30 Catheter removed. 14:08:34 ZEPHYR REGULAR TR BAND (328552) opened to sterile field. 14:08:51 EXOSEAL 6Fr (EX600) opened to sterile field. 14:09:06 Sheath removed intact; hemostasis achieved with Mechanical Compression to the Right Radial artery. 14:09:14 Sheath removed intact; hemostasis achieved with Exoseal to the Right Femoral artery. 14:09:15 Procedure ended.(Physican Out) 14:09:32 Fluoroscopy time 08.10 minutes. 14:09:39 Fluoroscopy dose: 1779 mGy 14::39 Flurop Dose total: 1779 14:09:51 Dose Area Product 63643 mGy/cm. 14:10:07 Contrast amount:Isovue 300 93ml. 14:10:10 Maximum allowable dose exceeded? No. 14:10:11 Sharps counted by scrub and verified by R.N. 14:10:14 Brewster band inflated with 10cc of air. 14:10:15 Insertion/operative site no bleeding no hematoma. 14:10:21 Post-op/insertion site Right Femoral artery dressed using a 4 x 4 and Tegaderm. 14:10:26 Post right radial artery:stable 14:10:27 Post Procedure Pulses reassessed and unchanged 14:10:30 Post procedure rhythm: unchanged. 14:10:33 Estimated blood loss: 5 ml 14:10:34 Post procedure instruction explained to patient.Patient verbalizes understanding. 14:10:35 Patient needs reinforcement of post procedure teaching. 14:10:43 Procedure type changed to Cath procedure, Diagnostic procedure, LHC, [facility] w/Coronaries, Sedation Charges, Moderate Sedation up to 30 minutes 14:10:43 Procedure and supply charges have been captured, reviewed, submitted and are correct. 14:10:48 Procedure Complication : No complications 14:10:50 Vital chart was stopped 14:10:54 [facility] Findings: mild to moderate CAD (<70%) 14:10:57 Operative report dictated upon procedure completion. 14:10:57 See physician's report for complete and final results. 14:11:08 Report given to Pre/Post Procedure Room. 14:11:11 Patient transfered to Pre/Post Procedure Room with Stretcher. 14:11:15 Procedure ended. 14:11:15 Full Disclosure recording stopped 14:11:26 End room use (Document Last) 14:11:59 End room use (Document Last) 14:12:32 End room use (Document Last) Device Usage Item Name Manufacture Quantity Catalog Hospital Part Current Minima l Lot# / Number Charge Number Stock Stock Serial# Code ACIST Acist 1 85194 793061 992068 [id number] 20 Syringe Medical (79793) Systems Inc Medline Medline 1 [id number] 334749 70702 577785 5 Cath Pack ([id number]) Bag Microtek 1 544471 65139 776541 5 Decanter Medical Inc. () ACIST Hand Acist 1 34000 626007 951356 669960 5 Control Medical (60407) Systems Inc ACIST Acist 1 94097 646759 855834 382170 5 Manifold Medical (95065) Systems Inc MBrace Advanced 1 140-0250-00 517465 71501 344901 5 Wrist Vascular Support Dynamics ([id number]) NEEDLE Cook Cook Medical 1 I09903 719364 701551 564163 5 21G 4cm Radial (J01275) SHEATH 6FR Cardinal 1 3994962 441316 0462326 697415 5 [facility] (4133526) EMERALD Cardinal 1 502-455 715795 244856 773844 5 Guide Wire Health (502-455) DIAGNOSTIC Terumo 1 40-5013 241480 127071 433792 5 [place] 110cm 5 Fr catheter (733543) DIAGNOSTIC Terumo 1 40-5023 338850 823837 298494 5 Omer 110cm 5Fr catheter (595966) GUIDE 5FR Medtronic 1 [id number] 525302 642301 613718 1 EBU 3.5 catheter ([id number]) SHEATH 5FR Terumo 1 GFU994 871405 465178 426775 5 Cooper (LJU988) DIAGNOSTIC Cardinal 1 [id number] 205678 669710 878401 10 JL 4.0 5Fr Health catheter (949128L) ZEPHYR Cardinal 1 219776 943849 3979800 208259 5 REGULAR TR Health BAND (232139) EXOSEAL 6Fr Cardinal 1 EX600 330305 236917 008651 10 (EX600) Health Signature Audit [place] Stage Time Signature Unsigned Intra-Procedure 04/07/2019 Raysa Teague 2:11:59 PM RT(R) Intra-Procedure 04/07/2019 Mariano 2:12:32 PM Kim RN Intra-Procedure 04/07/2019 Beau Limon MD 2:13:12 PM Signatures Performing Physician : Signature : Beau Limon MD Date : Time : Monitor : Raysa Teague RT Signature : Date : Time : Nurse : Mariano Alvarez Signature : RN Date : Time : [place] [address] [place] [address]
[~2019-04-07 11:00] MED LIST changes: -ZYRTEC10 MG PO
[2019-04-07] MEDS ORDERED: PREDNISONE10 MG PO (11:28)
[2019-04-07] MEDS ORDERED: OMEPRAZOLE40 MG PO (11:29)
[2019-04-07 11:54] VITALS: BP 134/89; Ht 177.8 cm; Wt 160.9 kg
[2019-04-07 11:59] LABS: BASOPHILS 0.2 % (0-2); EOSINOPHILS 1.1 % (0-7); HEMOGLOBIN 14.2 g/dL (12-16); IMMATURE GRANULOCYTES 0.6 % (0-5); LYMPHOCYTES 16.7 % (15-50); MCH 32.6 pg (26.0-34.0); MCV 98.6 fL (80.0-100.0); MEAN PLATELET VOLUME 8.7 fL (7.4-10.4); MONOCYTES 5.6 % (2-11); NEUTROPHILS 75.8 % (40-80); PLATELET COUNT 290 10x3/uL (130-400); RBC 4.36 10x6/uL (4.00-5.40); RDW 13.6 % (11.5-14.5); WBC 10.8 10x3/uL (4.8-10.8)
[2019-04-07 12:09] LABS: ANION GAP 10.9 mmol/L (8-16); CALCIUM 8.9 mg/dL (8.5-10.1); CARBON DIOXIDE 27.4 mmol/L (21.0-32.0); CREATININE - SERUM 0.9 mg/dL (0.6-1.3); POTASSIUM - SERUM 4.3 mmol/L (3.5-5.1)
--- NOTE | 2019-04-07 14:30 | NUR ---
PT ARRIVED BY STRETCHER. PLACED ON MONITORS. ASSESSMENT COMPLETED. FAMILY AT BEDSIDE.
--- NOTE | 2019-04-07 14:45 | NUR ---
PT RESTING COMFORTABLY. STILL IN SUPINE POSITION. FAMILY AT BEDSIDE. CALL LIGHT WITHIN REACH. RIGHT GROIN DRESSING C/D/I. NO S/S OF HEMATOMA NOTED. RIGHT WRIST Z BAND IN PLACE. NO BLEEDING/HEMATOMA NOTED.
--- NOTE | 2019-04-07 15:30 | NUR ---
HEAD OF BED INC TO 30 DEGREES. TOLERATED WELL. RIGHT WRIST Z BAND IN PLACE. NO BLEEDING/HEMATOMA NOTED. RIGHT GROIN DRESSING C/D/I. NO S/S OF HEMATOMA NOTED. CALL LIGHT WITHIN REACH.
--- NOTE | 2019-04-07 16:00 | NUR ---
2cc OF AIR REMOVED FROM Z BAND. NO BLEEDING/HEMATOMA NOTED. RIGHT GROIN DRESSING C/D/I. NO S/S OF HEMATOMA NOTED. RIGHT PEDAL PULSE PALPABLE. VSS. FAMILY AT BEDSIDE. NO NEEDS AT THIS TIME. CALL LIGHT WITHIN REACH.
--- NOTE | 2019-04-07 16:15 | NUR ---
4cc OF AIR REMOVED FROM Z BAND. TOLERATED WELL. NO BLEEDING/HEMATOMA NOTED. VSS.
--- NOTE | 2019-04-07 16:30 | NUR ---
PIV D/C'D WITH CATH TIP INTACT. PT TOLERATED WELL. RIGHT GROIN DRESSING C/D/I. NO S/S OF HEMATOMA NOTED. PT INSTRUCTED TO GET UP AND DRESSED. AMBULATED TO RESTROOM. VOIDED WITHOUT DIFFICULTY. BACK TO ROOM.
--- NOTE | 2019-04-07 16:35 | NUR ---
DISCUSSED DISCHARGE INSTRUCTIONS WITH PT AND PT'S FAMILY. THEY VOICED UNDERSTANDING. RIGHT WRIST Z BAND REMOVED AND DRESSING APPLIED. NO BLEEDING/HEMATOMA NOTED. RIGHT WRIST BRACE IN PLACE. PT INSTRUCTED TO KEEP ON FOR 2 HOURS AFTER ARRIVAL HOME. SHE VOICED UNDERSTANDING.
--- NOTE | 2019-04-07 16:50 | NUR ---
PT TAKEN OUT TO VEHICLE BY WHEELCHAIR. NO S/S OF DISTRESS NOTED. ALL BELONGINGS AND PAPERWORK IN HAND. RIGHT WRIST DRESSING C/D/I. NO S/S OF HEMATOMA NOTED.
== END 2019-04-07 16:50 | disposition home or self-care (01) ==
LOC: D.CATH 11:00
PROVIDERS: ATTEND Internal Medicine Cardiovascular Disease
DX: I20.9 Angina pectoris, unspecified (principal); R06.02 Shortness of breath; R94.30 Abnormal result of cardiovascular function study, unspecified

== ENCOUNTER 2019-04-19 10:24 | Day surgery (SDC) | payer BC ==
[~2019-04-19] VITALS: Ht 177.8 cm; Wt 159.5 kg
[2019-04-19 10:55] LABS: HEMATOCRIT 42.8 % (36.0-48.0); HEMOGLOBIN 14.1 g/dL (12-16); MCH 32.1 pg (26.0-34.0); MCHC 32.9 g/dL (31.0-37.0); MCV 97.5 fL (80.0-100.0); MEAN PLATELET VOLUME 8.7 fL (7.4-10.4); RBC 4.39 10x6/uL (4.00-5.40); RDW 13.7 % (11.5-14.5); WBC 8.4 10x3/uL (4.8-10.8)
[2019-04-19] MEDS ORDERED: ZYRTEC10 MG PO (11:18)
[2019-04-19 11:26] VITALS: Ht 177.8 cm; Wt 159.5 kg
--- NOTE | 2019-04-19 12:56 | NUR ---
1240 IV DC'D. CATHETER TIP INTACT. PRESSURE HELD UNTIL BLEEDING CEASED. NO SWELLING AT IV SITE. BANDAID APPLIED.
--- NOTE | 2019-04-21 19:09 | OP ---
PATIENT NAME: ALPHONSO MEDINA MEDICAL RECORD: [id number] :77 LOCATION:D.OPS ADMISSION DATE: SURGEON: JAVAD HARRISON DO DATE OF OPERATION: 04/19/2019 PROCEDURE: Colonoscopy. INDICATIONS FOR PROCEDURE: Screening for colorectal cancer, family history positive for cancer of the GI tract, personal history of polyps. SCOPE: Olympus video pediatric colonoscope. MEDICATIONS: Propofol 520 mg IV per anesthesia. WITHDRAWAL TIME: 7 minutes. ESTIMATED BLOOD LOSS: None. COMPLICATIONS: None. FINDINGS: Informed consent was given. The patient was made comfortable with the above medication. After reaching an adequate level of sedation by slow IV push, the patient was placed on her left side. A digital rectal examination was performed and was normal. The endoscope was advanced under direct visualization through the rectum, to the cecum and terminal ileum. The endoscope was slowly withdrawn and mucosa was carefully examined. The prep quality was good. There were no polyps visualized on today's examination. There was evidence of moderate diverticulosis involving the descending and sigmoid colon. There was no evidence of diverticulitis. Retroflexion was performed in the rectum with a normal appearing rectal wall. The endoscope was withdrawn from the patient. The patient tolerated the procedure well and there were no complications. IMPRESSION: 1. Moderate diverticulosis of the descending and sigmoid colon. 2. Otherwise, normal colonoscopy. PLAN AND RECOMMENDATIONS: 1. Discharge home when recovery parameters are met. 2. High fiber diet. 3. Continue current medications. 4. Recall colonoscopy in 5 years based on a personal history of adenomatous polyps. TRANSINT:[id number] Voice Confirmation ID: [id number] DOCUMENT ID: [id number] JAVAD HARRISON DO at 1909 CC: [id number] DICTATION DATE: 04/19/19 1220 MARKETING DATA SPECIALIST: 04/19/19 1232 [facility] 04/19/19 [place] [address] [place] [id number]
== END 2019-04-19 13:03 | disposition home or self-care (01) ==
LOC: D.OPS 10:24
PROVIDERS: Anesthesiology; ATTEND Internal Medicine Gastroenterology
DX: Z12.11 Encounter for screening for malignant neoplasm of colon (principal); Z80.0 Family history of malignant neoplasm of digestive organs; D69.0 Allergic purpura; R10.13 Epigastric pain

== ENCOUNTER → 2019-05-18 08:08 | Outpatient (CLI) | payer BC ==
[2019-04-19 11:26] VITALS: BMI 50.4
[~2019-05-18 08:08] MED LIST changes: +ZYRTEC10 MG PO
== END | disposition home or self-care (01) ==
LOC: D.MRI 08:08
PROVIDERS: ATTEND Clinical Nurse Specialist Family Health
DX: M25.551 Pain in right hip (principal); M25.552 Pain in left hip

== ENCOUNTER 2020-10-19 15:45 | Outpatient (CLI) | payer BC ==
[2020-04-02 17:42] VITALS: BMI 51.7
[~2020-10-19 15:45] MED LIST changes: +ALBUTEROL SULF8.5 GM INH; +AUGMENTIN 875-11 TAB PO; +AZITHROMYCIN500 MG PO; +COZAAR25 MG PO; +DECADRON4 MG PO; +DULERA 100 MCG8.8 GM INH; -FUROSEMIDE20 MG; +FUROSEMIDE20 MG PO; +METROLOTION59 ML TOPICAL; +MUCINEX DM ER1 EAC1 PO; +PHENERGAN25 M1 PO; +SINGULAIR10 MG PO; -SUPER B COMPLEX; +SUPER B COMPLEX PO; +TESSALON PERLE100 MG PO
== END 2020-10-19 16:45 | disposition home or self-care (01) ==
LOC: D.MAMMO 15:45
PROVIDERS: ATTEND Nurse Practitioner
DX: Z12.31 Encounter for screening mammogram for malignant neoplasm of breast (principal)